=== PATIENT | female | born 1985 | race Hispanic/Latino ===

== ENCOUNTER 2022-10-29 04:14 | Inpatient (IN) | payer SELFPAY ==
--- OUTSIDE RECORDS SUMMARY | 2022-10-29 04:16 | XMS REPORT | Continuity of Care Document ---
:1985 Author Organization [facility] t Address [address] [place] [address] Care Team Providers Name Role Phone Unavailable Unavailable Unavailable Payers Payer Name Policy Type Policy Number Effective Date Expiration Date S ource Problems This patient has no known problems. Allergies, Adverse Reactions, Alerts Allergy Allergy Status Severity Reaction(s) Onset Inactive Treating Comm ents Source Name Type Date Date Clinician No Known DA Active [facility] Allergie 11-02 [facility] s 00:00: Sangeetha 00 [facility] Medications This patient has no known medications. Procedures This patient has no known procedures. Results This patient has no known results.
[2022-10-29 05:14] LABS: Absolute Lymphocytes (CBC) 2.3 K/uL (0.7-4.9); Hematocrit 36.6 % (36.0-45.0); Lymphocytes % 13.1 % (15.3-44.8); MCV 85.5 fL (80-100); MPV 7.5 fL (7.6-11.3); Platelets 372 thou/uL (152-406); RBC Red Blood Cell Count 4.28 M/uL (3.86-4.86)
[2022-10-29 05:15] LABS: Specific Gravity 1.018 (1.005-1.030); Urine Bilirubin NEGATIVE (Negative); Urine Blood Negative (Negative); Urine Clarity Clear (Clear); Urine Color Light-Yellow (Yellow); Urine Glucose NEGATIVE (Negative); Urine Protein NEGATIVE (Negative); Urine Urobilinogen Normal (Normal); Urine pH 6.5 (5.0-7.0)
[2022-10-29] MEDS ORDERED: ONDANSETRON 4 MG/2 ML VIAL ONE ×2 (05:20→12:56)
[2022-10-29] MEDS ORDERED: NA CHLORIDE 0.9% 1,000 ML ONE (05:21)
[2022-10-29 05:36] LABS: Albumin 3.1 g/dL (3.4-5.0); Bilirubin Total 0.5 mg/dL (0.2-1.0); Potassium 2.9 mEq/L (3.5-5.1); Protein, Total 6.7 g/dL (6.4-8.2)
[2022-10-29] MEDS ORDERED: FENTANYL CITR 100 MCG/2 ML ONE ×3 (06:18→14:12)
[2022-10-29] MEDS ORDERED: POTASSIUM 25 MEQ EFFERV TAB ONE (06:54)
[2022-10-29] MEDS ORDERED: NA CHLORIDE 0.9% 500 ML ONE (06:54)
[2022-10-29] MEDS ORDERED: KCL 20 MEQ/100 mL IVPB 100 ML IV ONE (06:55)
--- NOTE | 2022-10-29 07:37 | EDPHYS ---
Physician Documentation [facility] Name: Rose Mary Martinez Age: 37 yrs Sex: Female : 1985 Arrival Date: 10/29/2022 Time: 04:14 Bed 13 Private MD: ED Physician Mart Guerra HPI: 10/29 05:34 This 37 yrs old Female presents to ER via Ambulatory with complaints of vishnu Abdominal Pain, Vomiting. 05:34 The patient presents to the emergency department with nausea. vishnu Historical: - Allergies: 04:47 No Known Allergies; pf1 - PMHx: 04:47 UTI; pf1 - PSHx: 04:47 Cholecystectomy; pf1 - Immunization history:: Adult Immunizations up to date, Client reports receiving the 2nd dose of the Covid vaccine, Last tetanus immunization: < 5 years ago Flu vaccine is not up to date. - Social history:: Smoking status: Patient denies any tobacco usage or history of. Patient/guardian denies using alcohol, street drugs. ROS: 05:35 Constitutional: Negative for fever, chills, and weight loss, Eyes: Negative for injury, vishnu pain, redness, and discharge, ENT: Negative for injury, pain, and discharge, Neck: Negative for injury, pain, and swelling, Cardiovascular: Negative for chest pain, palpitations, and edema, Respiratory: Negative for shortness of breath, cough, wheezing, and pleuritic chest pain, Back: Negative for injury and pain, : Negative for injury, bleeding, discharge, and swelling, MS/Extremity: Negative for injury and deformity, Skin: Negative for injury, rash, and discoloration, Neuro: Negative for headache, weakness, numbness, tingling, and seizure, Psych: Negative for depression, anxiety, suicide ideation, homicidal ideation, and hallucinations, Allergy/Immunology: Negative for hives, rash, and allergies, Endocrine: Negative for neck swelling, polydipsia, polyuria, polyphagia, and marked weight changes, Hematologic/Lymphatic: Negative for swollen nodes, abnormal bleeding, and unusual bruising. 05:35 Abdomen/GI: Positive for abdominal pain, nausea and vomiting, of the right upper quadrant and right lower quadrant. Exam: 05:35 Constitutional: This is a well developed, well nourished patient who is awake, alert, vishnu and in no acute distress. Head/Face: Normocephalic, atraumatic. Eyes: Pupils equal round and reactive to light, extra-ocular motions intact. Lids and lashes normal. Conjunctiva and sclera are non-icteric and not injected. Cornea within normal limits. Periorbital areas with no swelling, redness, or edema. ENT: Nares patent. No nasal discharge, no septal abnormalities noted. Tympanic membranes are normal and external auditory canals are clear. Oropharynx with no redness, swelling, or masses, exudates, or evidence of obstruction, uvula midline. Mucous membranes moist. Neck: Trachea midline, no thyromegaly or masses palpated, and no cervical lymphadenopathy. Supple, full range of motion without nuchal rigidity, or vertebral point tenderness. No Meningismus. Chest/axilla: Normal chest wall appearance and motion. Nontender with no deformity. No lesions are appreciated. Cardiovascular: Regular rate and rhythm with a normal S1 and S2. No gallops, murmurs, or rubs. Normal PMI, no JVD. No pulse deficits. Respiratory: Lungs have equal breath sounds bilaterally, clear to auscultation and percussion. No rales, rhonchi or wheezes noted. No increased work of breathing, no retractions or nasal flaring. Abdomen/GI: Soft, non-tender, with normal bowel sounds. No distension or tympany. No guarding or rebound. No evidence of tenderness throughout. Back: No spinal tenderness. No costovertebral tenderness. Full range of motion. Skin: Warm, dry with normal turgor. Normal color with no rashes, no lesions, and no evidence of cellulitis. MS/ Extremity: Pulses equal, no cyanosis. Neurovascular intact. Full, normal range of motion. Neuro: Awake and alert, GCS 15, oriented to person, place, time, and situation. Cranial nerves II-XII grossly intact. Motor strength 5/5 in all extremities. Sensory grossly intact. Cerebellar exam normal. Normal gait. Psych: Awake, alert, with orientation to person, place and time. Behavior, mood, and affect are within normal limits. Vital Signs: 04:32 BP 121 / 83; Pulse 89; Resp 18; Temp 97.8; Pulse Ox 100% on R/A; Weight 68.04 kg; pf1 Height 5 ft. 2 in. ; Pain 10/10; 05:00 BP 121 / 83; Pulse 79; Resp 16 S; Pulse Ox 100% on R/A; ha1 06:04 BP 108 / 74; Pulse 96; Resp 18 S; Pulse Ox 100% on R/A; ha1 07:13 BP 119 / 76; Pulse 88; Resp 15 S; Pulse Ox 100% on R/A; kc6 07:57 BP 126 / 79; Pulse 85; Resp 15 S; Pulse Ox 100% on R/A; kc6 09:00 BP 134 / 88; Pulse 86; Resp 16 S; Pulse Ox 100% on R/A; kc6 10:25 BP 113 / 82; Pulse 85; Resp 16 S; Pulse Ox 99% on R/A; kc6 11:39 BP 127 / 86; Pulse 81; Resp 14 S; Temp 99(O); kc6 04:32 Body Mass Index 27.44 (68.04 kg, 157.48 cm) pf1 04:32 Pain Scale: Adult pf1 MDM: 04:32 Patient medically screened. [facility] 05:37 Differential diagnosis: Nonspecific abd pain, gastritis, pancreatitis, appendicitis, vishnu diverticulitis, viral gastroenteritis, gastroenteritis. Data reviewed: vital signs, nurses notes, lab test result(s), radiologic studies, CT scan. Consideration of Admission/Observation Escalation of care including admission/observation considered. I considered the following discharge prescriptions or medication management in the emergency department Medications were administered in the Emergency Department. See MAR. Independent interpretation of the following test(s) in the Emergency Department CT Scan: My interpretation is ct abd pelvis . Test considered but Not performed: Ultrasound no gb us, no gb. Historians other than the Patient: patient, well informed. Care significantly affected by the following chronic conditions: uti. Counseling: I had a detailed discussion with the patient and/or guardian regarding the historical points, exam findings, and any diagnostic results supporting the discharge/admit diagnosis, lab results, radiology results, the need for outpatient follow up, for definitive care, a family practitioner, a general surgeon. 10/29 04:34 Order name: CBC with Diff; Complete Time: 05:33 vishnu 10/29 04:34 Order name: CMP; Complete Time: 06:28 vishnu 10/29 04:34 Order name: Lipase; Complete Time: 06:28 vishnu 10/29 04:34 Order name: Test, Urine; Complete Time: 05:33 [facility] 10/29 04:34 Order name: Urinalysis w/ reflexes; Complete Time: 05:33 [facility] 10/29 04:34 Order name: CT Abd/Pelvis - IV Contrast Only [facility] 10/29 04:34 Order name: IV Saline Lock; Complete Time: 05:13 [facility] 10/29 04:34 Order name: Labs collected and sent; Complete Time: 05:13 [facility] Administered Medications: 05:12 Drug: NS 0.9% IV 1000 ml Route: IV; Rate: 1 bolus; Site: left antecubital; ha1 07:00 Follow up: Response: No adverse reaction; IV Status: Completed infusion; IV Intake: ha1 1000ml 05:12 Drug: Ondansetron IVP 4 mg Route: IVP; Site: left antecubital; ha1 06:00 Follow up: Response: No adverse reaction; Nausea is decreased ha1 06:00 Drug: fentaNYL (PF) IVP 25 mcg Route: IVP; Site: left antecubital; ha1 06:30 Follow up: Response: No adverse reaction; Pain is decreased; RASS: Alert and Calm (0) ha1 06:45 Drug: Potassium Chloride IV 20 mEq Route: IV; Rate: per protocol; Site: left ha1 antecubital; 08:56 Follow up: Response: No adverse reaction; IV Status: Completed infusion kc6 07:08 Not Given (Patient Refused): Potassium PO Effervescent Tablet 50 mEq PO once; dissolve ha1 in 4 ounces of water or juice, IF CT NEGATIVE FOR A 07:53 Drug: NS 0.9% with KCl IV 20 mEq/L 1000 ml Route: IV; Rate: 125 ml/hr; Site: left kc6 antecubital; 08:25 Follow up: Response: No adverse reaction; IV Status: Infusion continued upon admission kc6 07:53 Drug: Piperacillin-Tazobactam IVPB 3.375 grams Route: IVPB; Infused Over: 60 mins; kc6 Site: left antecubital; 08:25 Follow up: Response: No adverse reaction; IV Status: Completed infusion; IV Intake: kc6 100ml Disposition Summary: 10/29/22 07:37 Hospitalization Ordered Hospitalization Status: Observation vishnu Provider: Raheem Lea cha Location: Telemetry/[facility] (observation) vishnu Condition: Stable vishnu Problem: new vishnu Symptoms: have improved vishnu Bed/Room Type: Standard [facility] Room Assignment: [facility] Diagnosis - Acute appendicitis with localized peritonitis vishnu - Elevated white blood cell count vishnu - Vomiting vishnu Discharge Instructions: - Discharge Summary Sheet vishnu - Abdominal Pain, Adult vishnu - Potassium Content of Foods vishnu - Flank Pain, Adult vishnu - Abdominal Pain, Adult, [id number] vishnu - Hypokalemia vishnu - Vomiting, Adult vishnu Forms: - Medication Reconciliation Form vishnu - SBAR form vishnu - Leadership Thank You Letter [facility] Prescriptions: - ondansetron 4 mg Oral Tablet,disintegrating - take 1 tablet by ORAL route every 6-8 hours for 5 days as needed for nausea and vishnu vomiting; 20 tablet; Refills: 0, Product Selection Permitted - Potassium Chloride 20 meq Oral Packet - take 1 packet by ORAL route once daily 1 packet in 6 (six) ounces of water or vishnu juice; Take after meal; 10 packet; Refills: 0, Product Selection Permitted - dicyclomine 10 mg/5 mL Oral Solution - take 10 milliliters by ORAL route 4 times per day; 160 milliliter; Refills: 0, vishnu Product Selection Permitted Signatures: Dispatcher [employer] EDMS Mart Guerra MD MD cha Ayala, Heidy RN RN ha1 Ashley Sequeira RN RN [email or web address] Tonya Dias RN RN pf1 Corrections: (The following items were deleted from the chart) 04:48 04:47 PMHx: None; pf1 pf1 04:54 04:35 Abdomen Limited+US.RAD.BRZ ordered. EDMS EDMS
--- NOTE | 2022-10-29 07:37 | ER ---
Nurse's Notes [facility] Name: Rose Mary Martinez Age: 37 yrs Sex: Female : 1985 Arrival Date: 10/29/2022 Time: 04:14 Bed 13 Private MD: Diagnosis: Acute appendicitis with localized peritonitis;Elevated white blood cell count;Vomiting Presentation: 10/29 04:32 Chief complaint: Patient states: abdominal pain of 10 to RUQ,RLQ and epigastric region pf1 with nausea and vomiting x 2 episodes,onset 0200 this AM. 04:32 Coronavirus screen: Vaccine status: Patient reports receiving the 2nd dose of the covid pf1 vaccine. pfizer Client denies travel out of the [place] in the last 14 days. At this time, the client does not indicate any symptoms associated with coronavirus-19. Ebola Screen: Patient negative for fever greater than or equal to 101.5 degrees Fahrenheit, and additional compatible Ebola Virus Disease symptoms. Initial Sepsis Screen: Does the patient meet any 2 criteria? No. Patient's initial sepsis screen is negative. Does the patient have a suspected source of infection? No. Patient's initial sepsis screen is negative. Risk Assessment: Do you want to hurt yourself or someone else? Patient reports no desire to harm self or others. 04:32 Method Of Arrival: Ambulatory pf1 04:32 Acuity: JONATHON 3 pf1 Historical: - Allergies: 04:47 No Known Allergies; pf1 - PMHx: 04:47 UTI; pf1 - PSHx: 04:47 Cholecystectomy; pf1 - Immunization history:: Adult Immunizations up to date, Client reports receiving the 2nd dose of the Covid vaccine, Last tetanus immunization: < 5 years ago Flu vaccine is not up to date. - Social history:: Smoking status: Patient denies any tobacco usage or history of. Patient/guardian denies using alcohol, street drugs. Screenin:30 [facility] ED Fall Risk Assessment (Adult) History of falling in the last 3 months, ha1 including since admission No falls in past 3 months (0 pts) Confusion or Disorientation No (0 pts) Intoxicated or Sedated No (0 pts) Impaired Gait No (0 pts) Mobility Assist Device Used No (0 pt) Altered Elimination No (0 pt) Score/Fall Risk Level 0 - 2 = Low Risk Oriented to surroundings, Maintained a safe environment, Educated pt \T\ family on fall prevention, incl call for assistance when getting out of bed. Abuse screen: Denies threats or abuse. Denies injuries from another. Nutritional screening: No deficits noted. Tuberculosis screening: No symptoms or risk factors identified. Assessment: 04:50 General: Appears uncomfortable, Behavior is calm, cooperative. Pain: Complains of pain ha1 in abdomen Pain does not radiate. Pain currently is 8 out of 10 on a pain scale. Quality of pain is described as crampy. Neuro: Level of Consciousness is awake, alert, obeys commands, Oriented to person, place, time, situation. Cardiovascular: Patient's skin is warm and dry. Respiratory: Airway is patent Respiratory effort is even, unlabored, Respiratory pattern is regular, symmetrical. GI: Abdomen is round non-distended, Bowel sounds present X 4 quads. Abd is soft and non tender Reports nausea, vomiting. 05:50 Reassessment: Patient and/or family updated on plan of care and expected duration. Pain ha1 level reassessed. Patient is alert, oriented x 3, equal unlabored respirations, skin warm/dry/pink. 06:41 Reassessment: Patient and/or family updated on plan of care and expected duration. Pain ha1 level reassessed. Patient is alert, oriented x 3, equal unlabored respirations, skin warm/dry/pink. 07:00 Reassessment: Patient appears in no apparent distress at this time. Patient and/or kc6 family updated on plan of care and expected duration. Pain level reassessed. Patient is alert, oriented x 3, equal unlabored respirations, skin warm/dry/pink. 07:56 Reassessment: Patient appears in no apparent distress at this time. No changes from kc6 previously documented assessment. Patient and/or family updated on plan of care and expected duration. Pain level reassessed. Patient is alert, oriented x 3, equal unlabored respirations, skin warm/dry/pink. 09:00 Reassessment: Patient appears in no apparent distress at this time. No changes from kc6 previously documented assessment. Patient and/or family updated on plan of care and expected duration. Pain level reassessed. Patient is alert, oriented x 3, equal unlabored respirations, skin warm/dry/pink. 10:25 Reassessment: Patient appears in no apparent distress at this time. No changes from kc6 previously documented assessment. Patient and/or family updated on plan of care and expected duration. Pain level reassessed. Patient is alert, oriented x 3, equal unlabored respirations, skin warm/dry/pink. 11:39 Reassessment: Patient appears in no apparent distress at this time. No changes from kc6 previously documented assessment. Patient and/or family updated on plan of care and expected duration. Pain level reassessed. Patient is alert, oriented x 3, equal unlabored respirations, skin warm/dry/pink. 12:34 Reassessment: Patient appears in no apparent distress at this time. No changes from kc6 previously documented assessment. Patient and/or family updated on plan of care and expected duration. Pain level reassessed. Patient is alert, oriented x 3, equal unlabored respirations, skin warm/dry/pink. Vital Signs: 04:32 BP 121 / 83; Pulse 89; Resp 18; Temp 97.8; Pulse Ox 100% on R/A; Weight 68.04 kg; pf1 Height 5 ft. 2 in. ; Pain 10/10; 05:00 BP 121 / 83; Pulse 79; Resp 16 S; Pulse Ox 100% on R/A; ha1 06:04 BP 108 / 74; Pulse 96; Resp 18 S; Pulse Ox 100% on R/A; ha1 07:13 BP 119 / 76; Pulse 88; Resp 15 S; Pulse Ox 100% on R/A; kc6 07:57 BP 126 / 79; Pulse 85; Resp 15 S; Pulse Ox 100% on R/A; kc6 09:00 BP 134 / 88; Pulse 86; Resp 16 S; Pulse Ox 100% on R/A; kc6 10:25 BP 113 / 82; Pulse 85; Resp 16 S; Pulse Ox 99% on R/A; kc6 11:39 BP 127 / 86; Pulse 81; Resp 14 S; Temp 99(O); kc6 04:32 Body Mass Index 27.44 (68.04 kg, 157.48 cm) pf1 04:32 Pain Scale: Adult pf1 ED Course: 04:17 Patient arrived in ED. mr 04:28 Patient has correct armband on for positive identification. Placed in gown. Bed in low ha1 position. Call light in reach. Side rails up X 1. 04:32 Mart Guerra MD is Attending Physician. vishnu 04:47 Triage completed. pf1 04:57 Radiology exam delayed due to lab results not completed at this time. (BUN/Creatinine) nj test not completed at this time. IV insertion attempt and/or patient not having appropriate IV at this time. 05:00 Inserted saline lock: 20 gauge in left antecubital area, using aseptic technique. Blood ha1 collected. 05:12 Teresita Mcgregor RN is Primary Nurse. ha1 05:13 CBC with Diff Sent. ha1 05:13 CMP Sent. ha1 05:13 Lipase Sent. ha1 05:13 Test, Urine Sent. ha1 05:13 Urinalysis w/ reflexes Sent. ha1 05:54 CT Abd/Pelvis - IV Contrast Only In Process Unspecified. EDMS 07:00 Report received from Teresita Mcgregor RN. [facility] 07:37 Raheem Lea MD is Hospitalizing Provider. [facility] 12:34 No provider procedures requiring assistance completed. Patient admitted, IV remains in kc6 place. Administered Medications: 05:12 Drug: NS 0.9% IV 1000 ml Route: IV; Rate: 1 bolus; Site: left antecubital; ha1 07:00 Follow up: Response: No adverse reaction; IV Status: Completed infusion; IV Intake: ha1 1000ml 05:12 Drug: Ondansetron IVP 4 mg Route: IVP; Site: left antecubital; ha1 06:00 Follow up: Response: No adverse reaction; Nausea is decreased ha1 06:00 Drug: fentaNYL (PF) IVP 25 mcg Route: IVP; Site: left antecubital; ha1 06:30 Follow up: Response: No adverse reaction; Pain is decreased; RASS: Alert and Calm (0) ha1 06:45 Drug: Potassium Chloride IV 20 mEq Route: IV; Rate: per protocol; Site: left ha1 antecubital; 08:56 Follow up: Response: No adverse reaction; IV Status: Completed infusion kc 07:08 Not Given (Patient Refused): Potassium PO Effervescent Tablet 50 mEq PO once; dissolve ha1 in 4 ounces of water or juice, IF CT NEGATIVE FOR A 07:53 Drug: NS 0.9% with KCl IV 20 mEq/L 1000 ml Route: IV; Rate: 125 ml/hr; Site: left kc6 antecubital; 08:25 Follow up: Response: No adverse reaction; IV Status: Infusion continued upon admission [facility] 07:53 Drug: Piperacillin-Tazobactam IVPB 3.375 grams Route: IVPB; Infused Over: 60 mins; 6 Site: left antecubital; 08:25 Follow up: Response: No adverse reaction; IV Status: Completed infusion; IV Intake: kc6 100ml Medication: 07:06 VIS not applicable for this client. ha1 Intake: 07:00 IV: 1000ml; Total: 1000ml. ha1 08:25 IV: 100ml; Total: 1100ml. [facility] Outcome: 07:37 Decision to Hospitalize by Provider. vishnu 12:34 Admitted to OR accompanied by nurse, via wheelchair, with chart, Report called to jolie Grimm RN 12:34 Condition: stable 12:34 Instructed on the need for admit. 12:42 Patient left the ED. eb Signatures: Dispatcher [employer] EDMS Mart Guerra MD MD cha Rivera, Josefa mr Eugenio, Karin Hill Teresita Mcgregor, FRIDA RN Ashley Looney RN RN Tonya Zimmerman RN RN pf1 Corrections: (The following items were deleted from the chart) 04:48 04:47 PMHx: None; pf1 pf1
--- NOTE | 2022-10-29 07:40 | RAD REPORT ---
EXAM DESCRIPTION: CT - Abdomen Pelvis W Contrast - 10/29/2022 5:53 am CLINICAL HISTORY: epigastric and right sided abd pain, vomiting COMPARISON: Abdomen Pelvis W Contrast dated 06/10/2022 TECHNIQUE: Thin cut axial CT imaging of the abdomen and pelvis was performed following intravenous a dministration of 95 mL Isovue 300. Multiplanar reformats were generated and reviewed. All CT scans are performed using dose optimization technique as appropriate and may include automated exposure control or mA/KV adjustment according to patient size. FINDINGS: No suspicious findings in the lung bases. The liver, spleen, adrenal glands, and pancreas show no suspicious findings. Gallbladder was surgical ly removed. No intra or extrahepatic biliary ductal dilation Symmetric renal function is seen with no hydronephrosis or suspicious renal mass. 1 cm right interpol ar cortical cyst. The appendix is distended measuring 1.3 cm in diameter, with mucosal hyperenhancement and surrounding fat stranding. Focus gas seen near the base of the appendix. No dilated bowel loops or bowel wall th ickening otherwise. No free air, free fluid or inflammatory stranding. No hernia, mass or bulky lymph adenopathy. Uterus again shows an IUD, oriented in the sagittal plane. The urinary bladder is without significant finding. No suspicious bony findings. IMPRESSION: Findings of acute appendicitis. Focus of gas in the lumen near the base of the appendix raises possibility for a gangrenous appendix. No extraluminal collections of gas. IUD seen in a sagittal orientation in the uterus. The findings were communicated to Mart Guerra on 10/29/2022 at 07:36 hours.
[2022-10-29] MEDS ORDERED: NA CHLORIDE 0.9% 100 ML ONE (07:52)
[2022-10-29] MEDS ORDERED: PIPERACIL/TAZO 3.375 GM VIAL IV ONE (07:52)
[2022-10-29] MEDS ORDERED: NS KCL 20MEQ 1,000 ML IV ONE (07:52)
[2022-10-29] MEDS ORDERED: SUCCINYLCHOLINE 20 MG/ML (10 ML) IV ONE (12:53)
[2022-10-29] MEDS ORDERED: propofoL 200 MG/20 ML VIAL IV ONE (12:56)
[2022-10-29] MEDS ORDERED: ROCURONIUM 50 MG/5 ML VIAL IV ONE (12:56)
[2022-10-29] MEDS ORDERED: MIDAZOLAM HCL 2 MG/2 ML INJ ONE (12:56)
[2022-10-29] MEDS ORDERED: Ringers Lactate 1,000 ML IV ONE ×2 (12:56→14:44)
[2022-10-29] MEDS ORDERED: GLYCOPYRROLATE 0.2 MG/ML SYR ONE (12:57)
[2022-10-29] MEDS ORDERED: LIDOCAINE 2% MPF 5 ML VIAL ONE (12:57)
[2022-10-29] MEDS ORDERED: NEOSTIGMINE 1 MG/ML -10 ML VIAL ONE (12:57)
--- NOTE | 2022-10-29 13:17 | P.HP ---
Date of Service: 10/29/22 PC: This 37-year-old female presented to the emergency room with severe abdominal pain for diagnosis and treatment. HPC: Patient states she had sudden onset of epigastric type pain last night around 2 AM. Could not get comfortable. Throughout the night the pain intensified and gradually localized more to the right lower quadrant and lower abdomen. PSHx: Previous cholecystectomy PMHx: No diabetes, no cardiovascular problems although does run in her family Social Hx: Negative Sys R: No cough, wheeze, shortness of breath. No chest pain or palpitations. No urinary complaints. O/E: Awake alert vital signs are stable, moderately uncomfortable HEENT: Nonicteric Chest: Chest movement equal bilaterally Abd: Abdomen is tender with mild guarding in the right lower quadrant [place]: Intact Data: Elevated white cell count, CT scan demonstrates acute appendicitis correlating with clinical diagnosis of acute abdomen Impression: Acute abdomen with appendicitis Plan: I will take her to the operating room for a laparoscopic/possible open appendectomy. The risks of this procedure have been discussed. The possibility of bleeding, infection, injury to bowel blood vessels and surrounding structures were outlined. She understands and wants us to proceed.
[2022-10-29] MEDS ORDERED: ONDANSETRON 4 MG/2 ML VIAL IV PRN (13:31)
[2022-10-29] MEDS ORDERED: ACETAMINOPHEN 325 MG TABLET PO PRN (13:35)
[2022-10-29] MEDS: FAMOTIDINE 20 MG/2 ML VIAL IV SCH ×2 (13:45→21:06)
[2022-10-29] MEDS: PIPER TAZO 3.375 GM in NA CHLORIDE 0.9% 100 ML IV SCH ×2 (14:00→21:46)
[2022-10-29] MEDS ORDERED: dexAMETHasone 4 MG/ML VIAL ONE (14:23)
--- NOTE | 2022-10-29 14:26 | P.OP ---
Preoperative diagnosis: Acute abdomen Postoperative diagnosis: Acute abdomen with appendicitis Primary procedure: Laparoscopic appendectomy Anesthesia: General Estimated blood loss: Less than 10 cc Specimen: 1 appendix and contents Operative Technique: The patient brought the operating room placed supine on the table. After the induction of adequate general endotracheal anesthesia, the area of the abdomen was prepped with a DuraPrep solution, and she was draped in the usual aseptic manner. Attention was turned towards the umbilicus. A skin incision was made. This was brought down through the skin and subcutaneous tissue. The Visiport was used to enter the peritoneal cavity and created pneumoperitoneum to approximately 12 mmHg. Under direct vision a 5 mm trocar was placed in the lower midline, and another 5 mm trocar on the right lateral side of the abdomen. With the patient placed in reverse Trendelenburg and the table rolled to the left we were able to visualize the right lower quadrant. We could see an acutely inflamed appendix. It coursed over to the pelvic sidewall on the right side. There informs some inflammatory adhesions. These were taken down using blunt and sharp dissection. The whole appendix was now freed on its mesentery. Attention was turned towards the junction of the appendix with the cecum. A small window was made in the mesentery in this area. The linear stapler was now introduced into the peritoneal cavity, placed across the base of the appendix, and fired. Attention was now turned towards the mesentery of the appendix. It was noted to be quite edematous. This was gently squeezed out using in a ratcheting retractor. The vascular reload for the stapling device was now introduced into the peritoneal cavity, placed across the mesentery of the a ppendix, and fired. The specimen was now placed into an Endo Catch and brought out through the umbilical trocar site. Once again we were able to reproduce and placed our camera's looking down into the right lower quadrant. Adequate hemostasis was ensured. The area was now irrigated with a copious amount of a saline solution. After placing the placement in reverse Trendelenburg, the irrigating fluid was aspirated from the peritoneal cavity. The umbilical trocar site was approximated using the Endo Close and an absorbable suture. At the end of the procedure she was in a stable condition was sent to the recovery room. Needle sponge instrument count were correct. No drains were placed. Complications: None Transferred to: Recovery Room Condition: Good
[2022-10-29] MEDS: HYDROMORPHONE HCL 1 MG/ML INJ ONE ×3 (14:45→15:00)
[2022-10-29] MEDS: ONDANSETRON 4 MG/2 ML VIAL ONE ×2 (14:45→14:56)
[2022-10-29] MEDS: MEPERIDINE HCL 25 MG/ML SYR ONE ×3 (14:50→15:10)
[2022-10-29 15:35] VITALS: BMI 27.4
[2022-10-29] MEDS: ONDANSETRON 4 MG/2 ML VIAL IV PRN (17:41)
[2022-10-29] MEDS: HYDROCODONE/APAP 7.5/325 MG TAB PO PRN (17:41)
[2022-10-29] MEDS: NS KCL 20MEQ 20 MEQ/1,000 ML BAG IV SCH (19:39)
[2022-10-29] MEDS: MORPHINE 4 MG/ML SYR IV PRN (22:24)
[2022-10-30] MEDS: HYDROCODONE/APAP 7.5/325 MG TAB PO PRN ×3 (01:57→21:47)
[2022-10-30 03:40] LABS: Potassium 4.3 mEq/L (3.5-5.1)
[2022-10-30] MEDS: NS KCL 20MEQ 20 MEQ/1,000 ML BAG IV SCH ×3 (04:05→11:07)
[2022-10-30] MEDS: PIPER TAZO 3.375 GM in NA CHLORIDE 0.9% 100 ML IV SCH ×3 (05:52→22:00)
[2022-10-30] MEDS: FAMOTIDINE 20 MG/2 ML VIAL IV SCH ×2 (09:48→21:47)
[2022-10-30 10:25] VITALS: O2SAT 97
[2022-10-30] MEDS: MORPHINE 4 MG/ML SYR IV PRN (17:43)
[2022-10-30] MEDS: ONDANSETRON 4 MG/2 ML VIAL IV PRN (19:36)
[2022-10-30] MEDS ORDERED: NA CHLORIDE 0.9% 1,000 ML IV SCH (20:00)
[2022-10-31] MEDS: MORPHINE 4 MG/ML SYR IV PRN (01:23)
[2022-10-31] MEDS: HYDROCODONE/APAP 7.5/325 MG TAB PO PRN ×2 (04:48→11:51)
[2022-10-31] MEDS: PIPER TAZO 3.375 GM in NA CHLORIDE 0.9% 100 ML IV SCH (06:14)
[2022-10-31] MEDS: FAMOTIDINE 20 MG/2 ML VIAL IV SCH (08:56)
[2022-10-31] MEDS: ONDANSETRON 4 MG/2 ML VIAL IV PRN (09:26)
--- NOTE | 2022-10-31 11:30 | P.PN ---
Date of Service: 10/31/22 S: Patient is afebrile today, has been up ambulating, voiding well on her own. Pain is much better controlled today than it was yesterday on hydrocodone. O: Vital signs are stable, remains afebrile. Good effort on incentive spirometry. Incisions clean. A: Surgically stable P: Now that the patient is pain is better under control on oral medications, and she is tolerating diet and able to keep hydrated we will discharge her home. She will see me next week in my office. She is to call for an appointment. Should she have any questions or problems, she knows to return to the emergency room or contact me.
--- NOTE | 2022-10-31 11:33 | P.DS ---
Admission Date: 10/30/22 Discharge Date: 10/31/22 Disposition: ROUTINE DISCHARGE Discharge Condition: GOOD Reason for Admission: Acute postoperative abdominal pain Procedures: Laparoscopic appendectomy Hospital Course: The patient presented to the emergency room with severe right lower quadrant abdominal pain for diagnosis and treatment. She was found to have an acute abdomen consistent with acute appendicitis. She was brought to the operating room where she underwent a laparoscopic appendectomy. She tolerated the procedure well however had we had did have some difficulty getting her pain fully under control as regards to medication. Today she is up ambulating, tolerating a diet, and the oral hydrocodone is working for her. She is anxious to be discharged. Vital Signs/Physical Exam: Temp Pulse Resp BP Pulse Ox 97.6 F 62 16 100/60 95 10/31/22 08:00 10/31/22 08:00 10/31/22 08:00 10/31/22 08:00 10/31/22 08:00 Laboratory Data at Discharge: WBC 17.80 thou/uL (4.3-10.9) H 10/29/22 05:00 Hgb 12.7 g/dL (12.0-15.0) 10/29/22 05:00 Hct 36.6 % (36.0-45.0) 10/29/22 05:00 Plt Count 372 thou/uL (152-406) 10/29/22 05:00 Sodium 137 mEq/L (136-145) 10/30/22 02:16 Potassium 4.3 mEq/L (3.5-5.1) D 10/30/22 02:16 BUN 6 mg/dL (7-18) L 10/30/22 02:16 Creatinine 0.89 mg/dL (0.55-1.02) 10/30/22 02:16 Glucose 125 mg/dL (74-106) H 10/30/22 02:16 Total Bilirubin 0.5 mg/dL (0.2-1.0) 10/29/22 05:00 AST 14 U/L (15-37) L 10/29/22 05:00 ALT 24 U/L (13-56) 10/29/22 05:00 Alkaline Phosphatase 56 U/L (45-117) 10/29/22 05:00 Lipase 22 U/L (13-75) 10/29/22 05:00 Home Medications: Diphenhydramine HCl [Benadryl] 1 tab PO BEDTIME 10/30/22 Physician Discharge Instructions: DC IV, DC home. Walk around at home. Continue incentive spirometry. You may shower. Change Band-Aids as needed. Diet as tolerated. Pain medicine as discussed. Milk of magnesia as needed for constipation. Call my office tomorrow for a follow-up appointment. Any questions or problems, go to the emergency room, or contact me. Diet: Regular Activity: Ad jemal Followup: NONE,NONE [Primary Care Provider] -
[2022-10-31 12:50] VITALS: BP 118/75; TEMP 97.8
== END 2022-10-31 14:00 | disposition home or self-care (01) | DRG 343 ==
LOC: ER 04:14 → ERHOLD 07:39 → 2ND 15:22 → OBSVTOIN 10-30 12:21
PROVIDERS: ADMIT Surgery; ATTEND Surgery
PROC: 0DTJ4ZZ Resection of Appendix, Percutaneous Endoscopic Approach (ICD-10-PCS; principal; 2022-10-30)
DX: K35.30 Acute appendicitis with localized peritonitis, without perforation or gangrene (principal); Z90.49 Acquired absence of other specified parts of digestive tract
CPT/HCPCS: 36415; 74177; 80048; 80053; 81003; 81025; 83690; 85025; 88304; 94010; 96361; 96365; 96375; 99285; G0378; J1100; J1170; J2001; J2175; J2250; J2405; J2543; J2704; J2710; J3010; J3480; J7030; J7040; J7120; Q9967